=== PATIENT | female | born 1990 | race Caucasian/White ===

== ENCOUNTER 2022-03-28 10:04 | Emergency (ER) | payer OTHER ==
[~2022-03-28] VITALS: Ht 157.5 cm; Wt 89.9 kg
[2022-03-28 10:05] VITALS: BP 124/71
[2022-03-28] MEDS ORDERED: NS 1,000 ML IV ONE (11:50)
[2022-03-28] MEDS ORDERED: METOCLOPRAMIDE INJ 10MG/2ML VIAL (J2765 PER 1) IV ONE (11:50)
[2022-03-28] MEDS ORDERED: KETOROLAC 30 MG/ML 1ML VIAL IV ONE (11:50)
[2022-03-28 12:04] LABS: RSV AMPLIFICATION NEGATIVE (NEGATIVE)
[2022-03-28 12:26] LABS: BASO % 0.4 % (0.0-1.0); EOS # 0.1 10^3/uL (0.0-0.5); EOS % 0.9 % (0.0-3.0); HEMATOCRIT 45.1 % (36.0-47.0); HEMOGLOBIN 14.7 g/dl (12.0-15.5); LYMPH # 2.6 10^3/uL (1.5-5.0); LYMPH % 26.2 % (24.0-44.0); MEAN CORPUSCULAR HEMOGLOBIN 30.3 pg (27.0-33.0); MEAN CORPUSCULAR HGB CONC 32.6 g/dl (32.0-36.5); MONO # 0.5 10^3/uL (0.0-0.8); MONO % 4.8 % (2.0-8.0); NEUTROPHILS # 6.6 10^3/uL (1.5-8.5); NEUTROPHILS % 67.4 % (36.0-66.0); PLATELET COUNT, AUTOMATED 261 10^3/uL (150-450); RED BLOOD COUNT 4.85 10^6/uL (4.00-5.40); WHITE BLOOD COUNT 9.9 10^3/uL (4.0-10.0)
[2022-03-28 13:17] LABS: BLOOD UREA NITROGEN 13 MG/DL (7-18); CALCIUM LEVEL 9.2 MG/DL (8.5-10.1); CARBON DIOXIDE LEVEL 29 MEQ/L (21-32); CHLORIDE LEVEL 107 MEQ/L (98-107); CREATININE FOR GFR 0.79 MG/DL (0.55-1.30); FREE THYROXINE INDEX 3.4 % (1.3-4.8); GLOMERULAR FILTRATION RATE > 60.0 (>60); GLUCOSE, FASTING 86 MG/DL (70-100); POTASSIUM SERUM 4.3 MEQ/L (3.5-5.1); SODIUM LEVEL 139 MEQ/L (136-145); T UPTAKE 37 % (30-39); THYROXINE (T4) 9.2 UG/DL (4.5-12.0)
== END 2022-03-28 14:21 | disposition home or self-care (01) ==
LOC: M ED 10:04
DX: R51.9 Headache, unspecified (principal); J45.909 Unspecified asthma, uncomplicated; E28.2 Polycystic ovarian syndrome; Z88.8 Allergy status to other drugs, medicaments and biological substances
CPT/HCPCS: 70450; 80048; 84436; 84443; 84479; 84702; 85025; 87631; 96361; 96374; 96375; 99283; J1885; J2765

== ENCOUNTER → 2022-04-13 | Outpatient (REF) | payer OTHER | LOC: M LAB REF 16:31 | PROVIDERS: ATTEND Physician Assistant | DX: J06.9 Acute upper respiratory infection, unspecified (principal) ==

== ENCOUNTER → 2022-07-04 | Outpatient (CLI) | payer OTHER | LOC: M WUC 15:46 | PROVIDERS: ATTEND Student in an Organized Health Care Education/Training Program | DX: M54.50 Low back pain, unspecified (principal) ==

== ENCOUNTER → 2022-07-15 | Outpatient (CLI) | payer OTHER | LOC: M WUC 13:58 | PROVIDERS: ATTEND Physician Assistant | DX: S00.33XA Contusion of nose, initial encounter (principal); X58.XXXA Exposure to other specified factors, initial encounter; Y92.9 Unspecified place or not applicable; Y93.9 Activity, unspecified; Y99.9 Unspecified external cause status ==

== ENCOUNTER 2022-08-28 11:37 | Emergency (ER) | payer OTHER ==
[~2022-08-28] VITALS: Ht 157.5 cm; Wt 94.1 kg
[2022-08-28 11:38] VITALS: BP 138/81
[2022-08-28] MEDS ORDERED: predniSONE 20 MG TAB PO ONE (12:30)
[2022-08-28] MEDS ORDERED: FAMOTIDINE 20 MG TAB PO ONE (12:30)
[2022-08-28] MEDS ORDERED: diphenhydrAMINE 50MG CAP PO ONE (12:30)
[2022-08-28] MEDS ORDERED: HYDR-3363 PO (13:29)
== END 2022-08-28 13:51 | disposition home or self-care (01) ==
LOC: M ED 11:37
DX: L50.9 Urticaria, unspecified (principal); J45.909 Unspecified asthma, uncomplicated; Z88.8 Allergy status to other drugs, medicaments and biological substances
CPT/HCPCS: 99283; J7512

== ENCOUNTER 2022-09-04 22:38 | Emergency (ER) | payer OTHER ==
[~2022-09-04] VITALS: Ht 157.5 cm; Wt 94.3 kg
[~2022-09-04 22:38] MED LIST: HYDR-3363 PO
[2022-09-04 22:41] VITALS: BP 127/75
[2022-09-04] MEDS ORDERED: ROBI1LIQ9 PO (22:51)
[2022-09-04] MEDS ORDERED: MUCI60TA7 PO (22:51)
== END 2022-09-05 01:59 | disposition left against medical advice (07) ==
LOC: M ED 22:38
DX: Z53.21 Procedure and treatment not carried out due to patient leaving prior to being seen by health care provider (principal)

== ENCOUNTER 2022-10-06 03:35 | Emergency (ER) | payer OTHER ==
[~2022-10-06] VITALS: Ht 157.5 cm; Wt 97.0 kg
[~2022-10-06 03:35] MED LIST changes: +MUCI60TA7 PO; +ROBI1LIQ9 PO
[2022-10-06 03:36] VITALS: BP 140/100
[2022-10-06 04:17] LABS: APPEARANCE, URINE HAZY (CLEAR); BACTERIA, URINE AUTO NEGATIVE (NEGATIVE); BILIRUBIN, URINE AUTO NEGATIVE (NEGATIVE); BLOOD, URINE BLOOD NEGATIVE (NEGATIVE); COLOR, URINE YELLOW (YELLOW); GLUCOSE, URINE (UA) AUTO NEGATIVE (NEGATIVE); KETONE, URINE AUTO NEGATIVE (NEGATIVE); LEUKOCYTE ESTERASE, URINE AUTO TRACE (NEGATIVE); MUCUS, URINE SMALL (NEGATIVE); NITRITE, URINE AUTO NEGATIVE (NEGATIVE); PROTEIN, URINE AUTO NEGATIVE (NEGATIVE); RBC, URINE AUTO 5 /HPF (0-3); SPECIFIC GRAVITY URINE AUTO 1.026 (1.002-1.035); SQUAMOUS EPITHELIAL CELL UR AU 5 /HPF (0-6); UROBILINOGEN, URINE AUTO 0.2 mg/dL (0.0-2.0); WBC, URINE AUTO 7 /HPF (0-3)
[2022-10-06 04:25] LABS: BASO % 0.3 % (0.0-1.0); EOS # 0.1 10^3/uL (0.0-0.5); EOS % 1.2 % (0.0-3.0); HEMATOCRIT 42.2 % (36.0-47.0); HEMOGLOBIN 13.8 g/dl (12.0-15.5); LYMPH # 2.3 10^3/uL (1.5-5.0); LYMPH % 35.8 % (24.0-44.0); MEAN CORPUSCULAR HEMOGLOBIN 30.2 pg (27.0-33.0); MEAN CORPUSCULAR HGB CONC 32.7 g/dl (32.0-36.5); MEAN CORPUSCULAR VOLUME 92.3 fl (80.0-96.0); MONO # 0.6 10^3/uL (0.0-0.8); MONO % 9.5 % (2.0-8.0); NEUTROPHILS # 3.4 10^3/uL (1.5-8.5); NEUTROPHILS % 52.9 % (36.0-66.0); PLATELET COUNT, AUTOMATED 200 10^3/uL (150-450); RED BLOOD COUNT 4.57 10^6/uL (4.00-5.40); WHITE BLOOD COUNT 6.5 10^3/uL (4.0-10.0)
[2022-10-06 04:54] LABS: LIPASE 32 U/L (12-53)
[2022-10-06 04:57] LABS: ALBUMIN 3.5 G/DL (3.2-5.2); ALKALINE PHOSPHATASE 64 U/L (46-116); ALT/SGPT 29 U/L (7.0-40); AST/SGOT < 8 U/L (<34); BILIRUBIN,DIRECT 0.1 MG/DL (<0.4); BILIRUBIN,TOTAL 0.4 MG/DL (0.3-1.2); BLOOD UREA NITROGEN 14 MG/DL (9-23); CALCIUM LEVEL 8.1 MG/DL (8.5-10.1); CARBON DIOXIDE LEVEL 29 MMOL/L (20-31); CHLORIDE LEVEL 106 MMOL/L (98-107); CREATININE FOR GFR 0.73 MG/DL (0.55-1.30); GLOMERULAR FILTRATION RATE > 60.0 (>60); GLUCOSE, FASTING 114 MG/DL (60-100); POTASSIUM SERUM 4.3 MMOL/L (3.5-5.1); SODIUM LEVEL 140 MMOL/L (136-145); TOTAL PROTEIN 6.9 G/DL (5.7-8.2)
== END 2022-10-06 06:59 | disposition left against medical advice (07) ==
LOC: M ED 03:35
DX: Z53.21 Procedure and treatment not carried out due to patient leaving prior to being seen by health care provider (principal)

== ENCOUNTER → 2024-02-13 | Outpatient (REF) | payer BC, MEDICAID | LOC: M LAB REF 16:14 | PROVIDERS: ATTEND Physician Assistant Medical | DX: J02.9 Acute pharyngitis, unspecified (principal) ==

== ENCOUNTER → 2024-02-16 | Outpatient (REF) | payer BC, MEDICAID | LOC: M LAB REF 21:31 | PROVIDERS: ATTEND Physician Assistant Medical | DX: R05.9 Cough, unspecified (principal) ==

== ENCOUNTER → 2024-03-18 | Outpatient (REF) | payer BC, MEDICAID | LOC: M LAB REF 21:02 | PROVIDERS: ATTEND Physician Assistant Medical | DX: B34.0 Adenovirus infection, unspecified (principal) ==

== ENCOUNTER → 2025-04-03 | Outpatient (REF) | payer BC, MEDICAID | LOC: M LAB REF 22:28 | PROVIDERS: ATTEND Physician Assistant | DX: B34.9 Viral infection, unspecified (principal) ==

== ENCOUNTER → 2025-05-16 | Outpatient (REF) | payer BC, MEDICAID | LOC: M LAB REF 17:13 | PROVIDERS: ATTEND Physician Assistant | DX: B34.9 Viral infection, unspecified (principal) ==

== ENCOUNTER → 2025-05-19 | Outpatient (CLI) | payer BC, MEDICAID | LOC: M WUC 14:04 | PROVIDERS: ATTEND Physician Assistant | DX: U07.1 COVID-19 (principal); R05.9 Cough, unspecified ==